=== PATIENT | female | born 1995 | race Two or more races ===

== ENCOUNTER 2020-01-14 07:08 | Emergency (ER) | payer OTHER ==
[~2020-01-14] VITALS: Ht 157.5 cm; Wt 68.0 kg
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
[2020-01-14] MEDS ORDERED: IBUPROFEN 600 MG TABLET PO ONE ×2 (07:53→08:00)
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
[2020-01-14 07:59] VITALS: BP 125/79
== END 2020-01-14 07:59 | disposition home or self-care (01) ==
LOC: ER 07:13
DX: S09.8XXA Other specified injuries of head, initial encounter (principal); F19.10 Other psychoactive substance abuse, uncomplicated; Y08.89XA Assault by other specified means, initial encounter; Y93.89 Activity, other specified; Y92.89 Other specified places as the place of occurrence of the external cause; Y99.8 Other external cause status